=== PATIENT | female | born 1965 | race African-American/Black ===

== ENCOUNTER 2019-07-01 12:34 | Emergency (ER) | payer OTHER ==
[~2019-07-01] VITALS: Ht 170.2 cm; Wt 86.4 kg
[2019-07-01] MEDS ORDERED: FLUO-191 PO (12:53)
[2019-07-01] MEDS ORDERED: ACETAMINOPHEN 500 MG TABLET PO ONE (13:30)
[2019-07-01 13:32] VITALS: BP 140/70
== END 2019-07-01 13:33 | disposition home or self-care (01) ==
LOC: EMS 12:37
DX: T17.918A Gastric contents in respiratory tract, part unspecified causing other injury, initial encounter (principal); F32.9 Major depressive disorder, single episode, unspecified; F12.90 Cannabis use, unspecified, uncomplicated; F17.210 Nicotine dependence, cigarettes, uncomplicated; Z88.5 Allergy status to narcotic agent; X58.XXXA Exposure to other specified factors, initial encounter; Y93.89 Activity, other specified; Y92.89 Other specified places as the place of occurrence of the external cause; Y99.8 Other external cause status
CPT/HCPCS: 99406

== ENCOUNTER 2022-09-06 17:22 | Emergency (ER) | payer OTHER ==
[~2022-09-06] VITALS: Ht 170.2 cm; Wt 90.9 kg
[~2022-09-06 17:22] MED LIST: FLUO-177 PO
[2022-09-06] MEDS ORDERED: IBUPROFEN 600 MG TABLET PO ONE (19:15)
[2022-09-06 19:33] LABS: BASOPHILS % (AUTO) 0.7 % (0.0-2.0); EOSINOPHILS % (AUTO) 4.7 % (1.0-6.0); HEMATOCRIT 35.4 % (36-46); LYMPHOCYTES # (AUTO) 2.3 K/uL (1.0-4.8); LYMPHOCYTES % (AUTO) 35.9 % (22.0-44.0); MEAN CORPUSCULAR HEMOGLOBIN 22.7 pg (26.0-34.0); MEAN CORPUSCULAR HGB CONC 31.1 G/dL (31.0-37.0); MEAN CORPUSCULAR VOLUME 73 fL (80-100); MONOCYTES # (AUTO) 0.7 K/uL (0.1-1.0); MONOCYTES % (AUTO) 11.5 % (2.0-9.0); NEUTROPHILS # (AUTO) 3.1 K/uL (1.8-7.7); NEUTROPHILS % (AUTO) 47.2 % (40.0-70.0); PLATELET COUNT (AUTO) 185 K/uL (150-450); RED BLOOD CELL COUNT(AUTO) 4.86 MIL/uL (4.00-5.20)
[2022-09-06 19:42] LABS: ANION GAP 8 mmol/L (8-16); CALCIUM, TOTAL 8.6 mg/dL (8.8-10.5); CARBON DIOXIDE 28 mmol/L (22-29); CHLORIDE 103 mmol/L (98-107); CREATININE 0.81 mg/dL (0.60-1.30); GLOMERULAR FILTR. RATE CALC > 60 mL/min (>60); GLUCOSE,RANDOM 83 mg/dL (70-110); POTASSIUM 3.8 mmol/L (3.5-5.1); SODIUM SERUM 139 mmol/L (136-145); UREA NITROGEN, BLOOD 14 mg/dL (7-18)
[2022-09-06] MEDS ORDERED: SODIUM CHLORIDE 0.9% 100 ML ONE (20:09)
[2022-09-06] MEDS ORDERED: IOHEXOL 350 MG/ML 100 ML VIAL ONE (20:09)
[2022-09-06 21:20] VITALS: BP 121/78
== END 2022-09-06 21:38 | disposition home or self-care (01) ==
LOC: EMS 17:25
DX: R07.81 Pleurodynia (principal); F32.A Depression, unspecified; F17.210 Nicotine dependence, cigarettes, uncomplicated; F12.90 Cannabis use, unspecified, uncomplicated; Z90.49 Acquired absence of other specified parts of digestive tract; Z88.5 Allergy status to narcotic agent
CPT/HCPCS: 99285; 71275; 71045; 80048; 84484; 85025; 85379; 36415; Q9967; J7050